=== PATIENT | female | born 1955 | race Caucasian/White ===

== ENCOUNTER → 2018-12-18 | Outpatient (CLI) | payer MEDICARE, MEDICAID ==
[2018-12-18 15:34] LABS: BUN/CREATININE RATIO 18; CREATININE SERUM 0.91 MG/DL (0.60-1.30); GFR ESTIMATED > 60
== END ==
LOC: RAD 14:57
PROVIDERS: ATTEND Registered Nurse General Practice
DX: G35 Multiple sclerosis (principal)
CPT/HCPCS: 36415; 82565; 84520